=== PATIENT | female | born 1970 | race Caucasian/White ===

== ENCOUNTER 2025-02-03 16:39 | Emergency (ER) | payer BC ==
[~2025-02-03] VITALS: Ht 165.1 cm; Wt 85.3 kg
[2025-02-03] MEDS ORDERED: ASPIRIN 300 MG SUPP R ONE (16:55)
[2025-02-03] MEDS ORDERED: HEPARIN SODIUM 250 ML IV SCH (16:55)
[2025-02-03] MEDS ORDERED: SODIUM BICARBONATE 150 MEQ in DEXTROSE 5% 1,000 ML IV ONE (17:00)
[2025-02-03] MEDS ORDERED: NOREPINEPHRINE BITARTRATE/D5W 250 ML IV ONE (17:07)
[2025-02-03] MEDS ORDERED: HEPARIN SODIUM 250 ML IV ONE (17:15)
[2025-02-03 17:18] LABS: ABG O2 SATURATION 99.3 % (94.0-98.0)
[2025-02-03 17:19] LABS: ABG BASE EXCESS -20.5 mmol/L (-2.0-3.0)
[2025-02-03] MEDS ORDERED: NOREPINEPHRINE BITARTRATE/D5W 250 ML IV SCH (17:20)
[2025-02-03 17:22] LABS: ARTERIAL BLOOD GAS PH 6.981 (7.350-7.450)
[2025-02-03 17:23] LABS: ARTERIAL BLOOD GAS PO2 364.0 mmHg (83.0-108.0)
[2025-02-03 17:31] LABS: ACT PARTIAL THROMBO TIME 60.6 SECONDS (20.0-32.1)
[2025-02-03 17:38] LABS: BUN 10.0 mg/dl (9-23); SGPT/ALT 122.0 U/L (5-49)
[2025-02-03] MEDS ORDERED: POTASSIUM CHLORIDE 20 MEQ TAB PO ONE (17:45)
[2025-02-03] MEDS ORDERED: POTASSIUM CHLORIDE 100 ML IV SCH (18:00)
[2025-02-03 18:24] LABS: MANUAL DIFF REFLEX YES; MEAN CELL VOLUME 93.3 fl (81.0-99.0); MEAN CORPUSCULAR HGB 29.5 pg (27.0-31.0); MEAN PLATELET VOLUME 12.5 fl (9.6-12.3); NUCLEATED RED BLOOD CELL 0.0 % (0.0-0.0); NUCLEATED RED BLOOD CELL 0.0 10*3/uL (0.0-0.0); PLATELET COUNT AUTOMATED 236 10*3/uL (130-400); RED CELL DISTRI WIDTH 14.4 % (0-14.5)
[2025-02-03 18:53] LABS: BASOPHILS 1 % (0-1); PLATELET SUFFICIENCY NORMAL (NORMAL)
== END 2025-02-03 21:10 | disposition short-term general hospital (02) ==
LOC: ED 16:39
PROVIDERS: Emergency Medicine; Nurse Practitioner Family
DX: I46.9 Cardiac arrest, cause unspecified (principal)